=== PATIENT | female | born 1980 | race African-American/Black ===

== ENCOUNTER 2020-02-06 15:40 | Emergency (ER) | payer OTHER ==
[~2020-02-06] VITALS: Ht 162.6 cm; Wt 100.0 kg
[2020-02-06 17:23] LABS: COVID AG,FIA SOURCE NASOPHARYNGEAL
[2020-02-06] MEDS ORDERED: DEXAMETHASONE SOD PHOS 4 MG/ML 5 ML VIAL IM ONE (18:30)
[2020-02-06 18:33] VITALS: BP 148/88
== END 2020-02-06 18:39 | disposition home or self-care (01) ==
LOC: EMS 15:40
DX: J45.909 Unspecified asthma, uncomplicated (principal); Z20.828 Contact with and (suspected) exposure to other viral communicable diseases
CPT/HCPCS: 71045; 87426; 96372; 99284; J1100

== ENCOUNTER 2020-06-28 20:02 | Emergency (ER) | payer OTHER ==
[~2020-06-28] VITALS: Ht 160 cm; Wt 143.6 kg
[2020-06-28 21:11] LABS: COVID AG,FIA SOURCE NASOPHARYNGEAL
[2020-06-28] MEDS ORDERED: ACETAMINOPHEN 500 MG TABLET PO ONE (21:15)
[2020-06-28] MEDS ORDERED: CEPHALEXIN MONOHYDRATE 500 MG CAPSULE PO ONE (21:15)
[2020-06-28] MEDS ORDERED: ONDANSETRON HCL 4 MG TABLET PO ONE (21:15)
[2020-06-28 21:57] VITALS: BP 114/70
== END 2020-06-28 22:10 | disposition home or self-care (01) ==
LOC: EMS 20:04
DX: J02.9 Acute pharyngitis, unspecified (principal); R11.2 Nausea with vomiting, unspecified; M79.10 Myalgia, unspecified site; F17.210 Nicotine dependence, cigarettes, uncomplicated; Z20.822 Contact with and (suspected) exposure to COVID-19
CPT/HCPCS: 87426; 99284; Q0162